=== PATIENT | male | born 1980 | race Asian ===

== ENCOUNTER 2019-10-08 11:13 | Emergency (ER) | payer OTHER ==
[~2019-10-08] VITALS: Ht 172.7 cm; Wt 78.6 kg
--- OUTSIDE RECORDS SUMMARY | 2019-10-08 11:23 | XMS REPORT | Continuity of Care Document ---
Author Organization Unknown Address Unknown Phone Unavailable Allergies There is no data. Medications There is no data. Problems There is no data. Procedures There is no data. Results There is no data. Encounters ACCT No. Visit Date/Time Discharge Status Pt. Type Provider Facility Loc./Unit Complaint [id number] 10/05/2019 10:10:00 [facility]
--- NOTE | 2019-10-08 11:58 | ED Headache ---
General Chief Complaint: Head/Cervical Problems Stated Complaint: HEADACHE Nursing Triage Note: Pt ambulates to triage with c/o headache x2 wks. Pt reports intermittent discomfort for x2wks. Pt reports discomfort to R side of head et behind R eye. Pt states, "it's hard to open my R eye sometimes." Pt denies visual changes. 3mm PERRLA. Pt reports he was seen at [facility] on 11/05/19 where they advised him to "keep an eye on his blood pressure." A&OX4. Nursing Sepsis Screen: No Definite Risk Source: patient Exam Limitations: no limitations History of Present Illness Date Seen by Provider: Oct 08, 2019 Time Seen by Provider: 11:56 Initial Comments To ER with right-sided headache. He would typically get these headaches about once a month. Starting about 3 months ago he began getting them several times a week. They are helped with ibuprofen. He has no visual changes but does feel the need to put pressure over his right eye when he gets these. Timing/Duration: increasing Severity/Quality: moderate Location: frontal, occipital, parietal Prior Headaches/Recent Trauma: no recent headache/trauma, occasional headaches Allergies and Home Medications Patient Home Medication List Home Medication List Reviewed: Yes Review of Systems Review of Systems Constitutional: see HPI Eyes: No Symptoms Reported Ears, Nose, Mouth, Throat: no symptoms reported Respiratory: no symptoms reported Cardiovascular: no symptoms reported Genitourinary: no symptoms reported Musculoskeletal: no symptoms reported Skin: no symptoms reported Psychiatric/Neurological: See HPI, Headache Past Mcvxmfd-Fhpelh-Jwpaqa Hx Patient Social History Alcohol Use: Denies Use Recreational Drug Use: Yes Drug of Choice: THC Type Used: Cigarettes Former Smoker, Quit: Feb 27, 2019 2nd Hand Smoke Exposure: No Recent Foreign Travel: No Contact w/Someone Who Travel: No Recent Infectious Disease Expo: No Recent Hopitalizations: No (Denies medical HX) Seasonal Allergies Seasonal Allergies: No Past Medical History Surgeries: No Respiratory: No Cardiac: Yes Hypertension Neurological: No Genitourinary: No Gastrointestinal: No Musculoskeletal: No Endocrine: No HEENT: No Cancer: No Psychosocial: No Blood Disorders: No Physical Exam Vital Signs Vital Signs - First Documented 10/08/19 11:19 Temp 36.8 Pulse 80 Resp 19 B/P (MAP) 130/89 (103) Pulse Ox 96 O2 Delivery Room Air Capillary Refill : Less Than 3 Seconds Height, Weight, BMI Height: '" Weight: lbs. oz. kg; 26.00 BMI Method: General Appearance: WD/WN, no apparent distress HEENT: PERRL/EOMI, normal ENT inspection, TMs normal Neck: non-tender, full range of motion, supple Respiratory: no respiratory distress, no accessory muscle use Gastrointestinal: normal bowel sounds, non tender Extremities: normal range of motion, non-tender Psychiatric: alert, oriented x 3 Crainal Nerves: normal hearing, normal speech, PERRL Skin: normal color, warm/dry Progress/Results/Core Measures Results/Orders My Orders Orders - EVANGELIST VAZQUEZ APRN Ct Head Wo (10/08/19 11:43) Vital Signs/I&O 10/08/19 11:19 Temp 36.8 Pulse 80 Resp 19 B/P (MAP) 130/89 (103) Pulse Ox 96 O2 Delivery Room Air Blood Pressure Mean: 103 Departure Communication (Admissions) he doesnot have a headache during his visit here. Impression Primary Impression: Cluster headache Disposition: 01 HOME, SELF-CARE Condition: Stable Departure-Patient Inst. Decision time for Depature: 12:16 Patient Instructions: Cluster Headache Add. Discharge Instructions: . Return to ER for any worsening 2. Follow-up with your doctor next week All discharge instructions reviewed with patient and/or family. Voiced understanding. Scripts Rizatriptan Benzoate ([employer]) 10 Mg Tab.rapdis 10 MG PO UD, #20 TAB take one at onset of symptoms. may repeat once two hours later if needed. no more than 2 tablets per day. Prov: EVANGELIST VAZQUEZ APRN 10/08/19 EVANGELIST VAZQUEZ APRN Oct 08, 2019 11:58
--- NOTE | 2019-10-08 12:02 | Diagnostic Imaging Report ---
PROCEDURE: CT head without contrast. TECHNIQUE: Multiple contiguous axial images were obtained through the brain without the use of intravenous contrast. Auto Exposure Controls were utilized during the CT exam to meet ALARA standards for radiation dose reduction. INDICATION: Right-sided headaches x 3 months. COMPARISON: None. FINDINGS: No intracranial hemorrhage, mass effect, hydrocephalus, or extra-axial fluid collections. No CT evidence of territorial infarction. The osseous structures are intact. The visualized paranasal sinuses and mastoids are clear. IMPRESSION: No acute intracranial CT findings. Dictated by: Dictated on workstation # [id number]
[2019-10-08] MEDS ORDERED: RIZA10TA20 PO (12:21)
[2019-10-08 12:28] VITALS: BP 134/79
== END 2019-10-08 12:28 | disposition home or self-care (01) ==
LOC: ER 11:16
DX: G44.009 Cluster headache syndrome, unspecified, not intractable (principal); Z87.891 Personal history of nicotine dependence
CPT/HCPCS: 70450